=== PATIENT | male | born 1965 | race Caucasian/White ===

== ENCOUNTER → 2018-05-18 | Day surgery (SDC) | payer OTHER ==
--- NOTE | 2018-05-11 16:42 | Diagnostic Imaging Report ---
EXAMINATION: PA and lateral views of the chest. COMPARISON: None CLINICAL HISTORY: Preoperative evaluation, cholecystitis DISCUSSION: Lines/tubes: None. Lungs: The lungs are well inflated and clear. No pneumonia or pulmonary edema. Pleura: No pleural effusion or pneumothorax. Heart and mediastinum: The cardiomediastinal silhouette is normal. Bones and soft tissues: No acute bony abnormalities. IMPRESSION: No acute cardiopulmonary abnormalities. Signed by: Dr. Jr Thrasher M.D. on 05/11/2018 4:38 PM
[2018-05-11 16:52] LABS: BASOPHILS # (AUTO) 0.1 (0.0-0.1); BASOPHILS % 0.5 % (0.0-1.0); EOSINOPHILS # (AUTO) 0.2 (0.0-0.4); EOSINOPHILS % 1.8 % (0.0-6.0); HEMATOCRIT 43.1 % (38.2-49.6); HEMOGLOBIN 14.7 g/dL (14.0-18.0); LYMPHOCYTES # (AUTO) 3.8 (1.0-3.2); LYMPHOCYTES % 33.6 % (18.0-39.1); MEAN CORPUSCULAR HEMOGLOBIN 28.7 pg (28-32); MEAN CORPUSCULAR HGB CONC 34.1 g/dL (31-35); MONOCYTES # (AUTO) 0.7 (0.2-0.8); MONOCYTES % 6.1 % (4.4-11.3); NEUTROPHILS # (AUTO) 6.5 (2.1-6.9); NEUTROPHILS % 57.7 % (38.7-80.0); PLATELET COUNT 328 x10e3/uL (140-360); RED BLOOD COUNT 5.13 x10e6/uL (4.3-5.7); RED CELL DISTRIBUTION WIDTH 13.2 % (11.7-14.4)
[2018-05-11 17:11] LABS: ANION GAP 15.2 mmol/L (8-16); BLOOD UREA NITROGEN 16 mg/dL (7-26); BUN/CREATININE RATIO 18 (6-25); CALCIUM 9.6 mg/dL (8.4-10.2); CARBON DIOXIDE 24 mmol/L (22-29); CHLORIDE 101 mmol/L (98-107); CREATININE, SERUM 0.91 mg/dL (0.72-1.25); EST GLOMERULAR FILTRATION RATE > 60 ML/MIN (60-); GLUCOSE 91 mg/dL (74-118); POTASSIUM 4.2 mmol/L (3.5-5.1); SODIUM 136 mmol/L (136-145)
[~2018-05-18] MED LIST: ACETAMINOPHEN 1000 MG/100 ML IV ONE; APPLE CIDER VI300 MG PO; BUPIVACAINE 0.5%/EPI 30 ML SDV INJ ONE; DEXAMETHASONE SOD PHOS INJ 4 MG/ML VIAL ONE; FENTANYL CITRATE/PF 100MCG/2 ML INJ ONE; FIBER GUMMIES PO; GLYCOPYRROLATE INJ 1MG/ 5 ML SYR ONE; KETOROLAC TROMETHAMINE 30 MG/ML VIAL ONE; LIDOCAINE HCL 2% LOCAL INJ 5 ML SDV VIAL INJ ONE; MIDAZOLAM HCL 2 MG/2 ML VIAL ONE; NEOSTIGMINE 5 MG/5ML SYR ONE; ONDANSETRON HCL INJ 2MG/ML 2ML 2 MG/ML VIAL ONE; PROPOFOL IV EMULSION 10 MG/ML 20 ML VIAL ONE; ROCURONIUM BROMIDE 10 MG/ML 5ML VIAL ONE; SEVOFLURANE INHAL SOLN 250 ML PEN BTL ONE; VITAMIN D GUMMIES PO
--- OUTSIDE RECORDS SUMMARY | 2018-05-18 05:56 | XMS REPORT ---
Author Author Douglas Cornejo Organization [employer] Address Unknown Phone Unavailable Care Team Providers Care Hot Dog Vender Name Role Phone Douglas Cornejo Unavailable Allergies, Adverse Reactions, Alerts Substance Reaction Event Type pnc Info Not Available Drug Allergy Encounters Encounter Location Date calling in for lab results ....... [place] Dec 22, 2015 Unknown [facility] Dec 22, 2015 Sick Visit [place], [place] Dec 16, 2015 Problems Problem Type Condition ICD-9 Code Onset Dates Condition Status Problem Acid reflux K21.9 Active Problem Chest pressure R07.89 Active Problem Abdominal bloating R14.0 Active Assessment Chest pressure R07.89 Active Assessment Abdominal bloating R14.0 Active Assessment Acid reflux K21.9 Active Medications Medication Code System Code Instructions Start Date End Date Status Dosage [facility] [address]-22 40 mg Orally Once a day Dec 16, 2015 Active 1 tablet Social History Social History Element Qualifiers Date Reported Tobacco Use: . Are you a: current smoker Dec 16, 2015 Use of recreational / street drugs? . Answer: No Dec 16, 2015 Do you have pets? . Status: Yes, Type: cat(s) Dec 16, 2015 Marital Status: . Dec 16, 2015 Caffeine intake? . Status: Yes, What type: Coffee, Soft Drinks Dec 16, 2015 Do you exercise? . Answer: Yes, Type: walking Dec 16, 2015 Do you drink alcohol? . Status: No Dec 16, 2015 Travel outside [place]: . 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
--- OUTSIDE RECORDS SUMMARY | 2018-05-18 05:56 | XMS REPORT ---
Author Author [facility] Address Unknown Phone Unavailable Care Team Providers Care Rcp Name Role Phone Melissa DOUGLAS Unavailable Unavailable Problems This patient has no known problems. Allergies, Adverse Reactions, Alerts This patient has no known allergies or adverse reactions. Medications This patient has no known medications. Results Test Description Test Time Test Comments Text Results Atomic Results Result Comments CHEST 2 VIEWS 2018-05-11 16:38:00 [place] [address] Patient Name: YAQUELIN CARTER MR #: [id number] : 1965 Age/Sex: 53/M Req #: [id number] [facility] Physician: Ordered by: CHRISTINE DOUGLAS MD Report #: [id number] Location: OR Room/Bed: Procedure: [id number] DX/CHEST 2 VIEWS Exam Date: 05/11/18 Exam Time: 1620 REPORT STATUS: Signed EXAMINATION: PA and lateral views of the chest. COMPARISON: None CLINICAL HISTORY: Preoperative evaluation, cholecystitis DISCUSSION: Lines/tubes: None. Lungs: The lungs are well inflated and clear. No pneumonia or pulmonary edema. Pleura: No pleural effusion or pneumothorax. Heart and mediastinum: The cardiomediastinal silhouette is normal. Bones and soft tissues: No acute bony abnormalities. IMPRESSION: No acute cardiopulmonary abnormalities. Signed by: Dr. Colten Carcamo M.D. on 05/11/2018 4:38 PM Dictated By: COLTEN CARCAMO MD [id number] Transcribed By: ASHU on 05/11/18 1638 COPY TO: CHRISTINE DOUGLAS MD
--- OUTSIDE RECORDS SUMMARY | 2018-05-18 05:56 | XMS REPORT | Summary of Care ---
Author [facility] Address Unknown Phone Unavailable Care Team Providers Care Clinical Social Worker Name Role Phone SAMMY Cooley, ALEJANDRO Unavailable Unavailable SHAN ARGUETA M.D. Unavailable Unavailable Unavailable Unavailable Functional Status Name Dates Details Functional status health issues are not documented Status: Name Dates Details Cognitive status health issues are not documented Status: Problems Name Dates Details Limb pain (729.5, M79.609) Status: Active Acute internal derangement of knee, right (717.9, M23.91) Status: Active Dislocation of right knee, initial encounter (836.50, S83.104A) Status: Active Rupture of anterior cruciate ligament of right knee, initial encounter (844.2, S83.511A) Status: Active Rupture of posterior cruciate ligament of right knee, initial encounter (844.2, S83.521A) Status: Active Injury of posterolateral complex of right knee, initial encounter (959.7, S89.91XA) Status: Active Medications Name Dates Details MethylPREDNISolone 4 MG Oral Tablet Therapy Pack TAKE DIRECTED Quantity: 1 SHAN ARGUETA M.D. * Start : 14-Apr-2017 Active 21 Tablet Pack TraMADol HCl - 50 MG Oral Tablet TAKE 1-2 PO Q 4-6 HOURS PRN PAIN * Quantity: 50 Refills: 1 ALEJANDRO CHRISTIANSON M.D. * Start : 18-May-2017 Active Cyclobenzaprine HCl - 10 MG Oral Tablet TAKE 1 TABLET DAILY NEEDED. * Quantity: 30 Refills: 1 SAMMY M.DALEJANDRO Mayer * Start : 18-May-2017 Active Promethazine HCl - 12.5 MG Oral Tablet TAKE 1 TABLET EVERY 4 TO 6 HOURS NEEDED FOR NAUSEA. * Quantity: 30 Refills: 0 SAMMY M.DMoreno, ALEJANDRO * Start : 18-May-2017 Active TraMADol HCl - 50 MG Oral Tablet TAKE 1 TABLET EVERY 4 TO 6 HOURS NEEDED FOR PAIN. * Quantity: 60 Refills: 1 SAMMY M.D., ALEJANDRO * Start : 18-Jul-2017 Active Allergies and Adverse Reactions Name Dates Details Penicillins (Allergy) Status: Active Procedures Procedure Dates Details [U] XRAY KNEE 1 OR 2 VWS RIGHT [id number] Date: 22-Jan-2018 Immunization Name Dates Details Immunizations not documented Social History Name Dates Details Unknown if ever smoked Vital Signs Date Test Result Details No Known Vitals to report Results Date Description Value Details Results not documented Plan of Care Name Dates Details Planned Observations Planned Goals not documented Planned Encounters Appointment; ALEJANDRO CHRISTIANSON M.D. On: 23-Jan-2018 10:15 Interventions Provided Labs/Procedures/Imaging* [U] XRAY KNEE 1 OR 2 VWS RIGHT [id number]; To Be Done: 23 Jan 2018 Instructions Name Dates Details Instructions not documented Encounters Appointment; SHAN ARGUETA M.D. Encounter Diagnosis: Problem not documented On: 14-Apr-2017 10:30 Appointment; SHAN ARGUETA M.D. Encounter Diagnosis: Problem not documented On: 21-Apr-2017 10:15 Appointment; ALEJANDRO CHRISTIANSON M.D. Encounter Diagnosis: Problem not documented On: 02-May-2017 9:30 Appointment; ALEJANDRO CHRISTIANSON M.D. Encounter Diagnosis: Problem not documented On: 18-May-2017 7:00 Appointment; ALEJANDRO CHRISTIANSON M.D. Encounter Diagnosis: Problem not documented On: 25-May-2017 11:00 Appointment; ALEJANDRO CHRISTIANSON M.D. Encounter Diagnosis: Problem not documented On: 01-Jun-2017 11:00 Appointment; ALEJANDRO CHRISTIANSON M.D. Encounter Diagnosis: Problem not documented On: 06-Jun-2017 10:45 Appointment; ALEJANDRO CHRISTIANSON M.D. Encounter Diagnosis: Problem not documented On: 20-Jun-2017 13:30 Appointment; ALEJANDRO CHRISTIANSON M.D. Encounter Diagnosis: Problem not documented On: 18-Jul-2017 13:45 Appointment; ALEJANDRO CHRISTIANSON M.D. Encounter Diagnosis: Problem not documented On: 15-Aug-2017 15:15 Appointment; ALEJANDRO CHRISTIANSON M.D. Encounter Diagnosis: Problem not documented On: 24-Oct-2017 14:45 Appointment; ALEJANDRO CHRISTIANSON M.D. Encounter Diagnosis: Problem not documented On: 23-Jan-2018 10:15
--- OUTSIDE RECORDS SUMMARY | 2018-05-18 05:56 | XMS REPORT ---
Author Author Douglas Cornejo Organization [employer] Address Unknown Phone Unavailable Care Team Providers Care Dye Penetrant Testing Technician Name Role Phone Douglas Cornejo CP Unavailable Encounters Encounter Location Date calling in for lab results ....... Estephania [place], [place] Dec 22, 2015 Unknown [place]stephania [place], [place] Dec 22, 2015 Problems Problem Type Condition ICD-9 Code Onset Dates Condition Status Problem Acid reflux K21.9 Active Problem Chest pressure R07.89 Active Problem Abdominal bloating R14.0 Active Medications Medication Code System Code Instructions Start Date End Date Status Dosage Clarithromycin MEDISPAN [address]-19 500 mg Orally twice a day (bid) Dec 22, 2015 Jan 01, 2016 Active 1 tablet Protonix [facility] [address]-24 40 mg Orally twice a day (bid) Dec 22, 2015 Active 1 tablet Metronidazole [facility] [address]-44 500 mg Orally twice a day (bid) Dec 22, 2015 Jan 01, 2016 Active 1 tablet Social History Social History [...] 

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
--- OUTSIDE RECORDS SUMMARY | 2018-05-18 05:56 | XMS REPORT ---
Author Author Douglas Cornejo Organization [employer] Address Unknown Phone Unavailable Care Team Providers Care Air Reduction Equipment Operator Name Role Phone Douglas Cornejo CP Unavailable Allergies, Adverse Reactions, Alerts Substance Reaction Event Type pnc Info Not Available Drug Allergy Problems Problem Type Condition Code Onset Dates Condition Status Assessment Pure hypercholesterolemia E78.00 Active Problem Seasonal allergies J30.2 Active Problem Gastroesophageal reflux disease without esophagitis K21.9 Active Problem Primary insomnia F51.01 Active Assessment Seasonal allergies J30.2 Active Assessment Primary insomnia F51.01 Active Problem Pure hypercholesterolemia E78.00 Active Assessment Acute non-recurrent maxillary sinusitis J01.00 Active Medications Medication Code System Code Instructions Start Date End Date Status Dosage [place] [facility] [address]-18 Active not defined Azithromycin [facility] 37978062989 250 MG Orally Once a day September 01, 2017 September 06, 2017 Active 2 tablets on the first day, then 1 tablet daily for 4 days Loratadine [facility] 29657557329 10 MG Orally Once a day September 01, 2017 Nov 30, 2017 Active 1 tablet Fluticasone Propionate [facility] 76069086378 50 MCG/ACT Nasally Once a day September 01, 2017 Active 1 spray in each nostril Tramadol HCl [facility] 57508538088 50 MG Orally every 6 hrs Active 1 tablet as needed Trazodone HCl [facility] 48939298990 50 MG Orally Once a day September 01, 2017 Active 1 tablet at bedtime as needed Vital Signs Date/Time: September 01, 2017 BMI 31.16 Index Weight 199 lbs Height 67 in Temperature 97.8 F Blood Pressure Diastolic 89 mm Hg Blood Pressure Systolic 137 mm Hg Results No Known Results Summary Purpose eClinicalWorks Submission
--- OUTSIDE RECORDS SUMMARY | 2018-05-18 05:56 | XMS REPORT ---
Author Author Douglas Cornejo Organization [employer] Address Unknown Phone Unavailable Care Team Providers Care Commercial Tire Service Technician Name Role Phone Douglas Cornejo CP [...] Instructions Start Date End Date Status Dosage Omeclamox-Angel Luis MEDISPAN [address]-65 500-500-20 MG Orally as directed Dec 22, 2015 Active as directed Lipitor [facility] [address]-71 10 mg Orally Once a day Dec 22, 2015 Active 1 tablet Social History Social [...]
--- OUTSIDE RECORDS SUMMARY | 2018-05-18 05:56 | XMS REPORT ---
Author Author Douglas Cornejo [facility] eClinicalWorks Address Unknown Phone Unavailable Care Team Providers Care Trouble Locator Test Desk Name Role Phone Douglas Cornejo Unavailable Allergies, Adverse Reactions, Alerts Substance Reaction Event Type pnc Info Not Available Drug Allergy Encounters Encounter Location Date REFILLS Estephania [place] MD, [place] June 13, 2016 calling in for lab results ....... Estephania Ireland MD, PA Dec 22, 2015 Unknown Estephania Ireland MD, [place] Dec 22, 2015 Sick Visit Estephania Ireland MD, [place] Dec 16, 2015 Problems Problem Type Condition ICD-9 Code Onset Dates Condition Status Assessment Pure hypercholesterolemia E78.00 Active Problem Chest pressure R07.89 Active Assessment Gastroesophageal reflux disease without esophagitis K21.9 Active Problem Pure hypercholesterolemia E78.00 Active Problem Lipoma of left upper extremity D17.22 Active Problem Gastroesophageal reflux disease without esophagitis K21.9 Active Problem Abdominal bloating R14.0 Active Problem Acid reflux K21.9 Active Problem Ventral hernia without obstruction or gangrene K43.9 Active Problem Helicobacter pylori (H. pylori) infection A04.8 Active Assessment Helicobacter pylori (H. pylori) infection A04.8 Active Assessment Ventral hernia without obstruction or gangrene K43.9 Active Assessment Lipoma of left upper extremity D17.22 Active Medications Medication Code System Code Instructions Start Date End Date Status Dosage [facility] [address]-86 500-500-20 MG Orally as directed Dec 22, 2015 Active as directed Lipitor [facility] [address]-98 20 MG Orally Once a day Dec 22, 2015 Active 1 tablet Pantoprazole Sodium [facility] [address]-64 40 mg Orally Once a day Dec 16, 2015 Active 1 tablet Pantoprazole Sodium [facility] [address]-33 40 MG Orally Once a day June 13, 2016 Active 1 tablet Protonix [facility] [address]-52 40 mg Orally twice a day (bid) Dec 22, 2015 Active 1 tablet Social History Social History Element Qualifiers Date Reported Tobacco Use: . Are you a: current smoker June 13, 2016 Use of recreational / street drugs? . Answer: No June 13, 2016 Do you have pets? . Status: Yes, Type: cat(s) June 13, 2016 Marital Status: . June 13, 2016 Caffeine intake? . Status: Yes, What type: Coffee, Soft Drinks June 13, 2016 Do you exercise? . Answer: Yes, Type: walking June 13, 2016 Do you drink alcohol? . Status: No June 13, 2016 Travel outside [place]: . 

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
[2018-05-18 15:15] VITALS: BP 130/87
--- NOTE | 2018-05-18 16:29 | Operative Report ---
DATE OF PROCEDURE: May 18, 2018 PREOPERATIVE DIAGNOSIS: Cholecystitis and cholelithiasis. POSTOPERATIVE DIAGNOSIS: Cholecystitis and cholelithiasis. OPERATION PERFORMED: Laparoscopic cholecystectomy. ANESTHESIA: General. COMPLICATIONS: None. ESTIMATED BLOOD LOSS: Minimal. DESCRIPTION OF PROCEDURE: With the patient lying in bed in the supine position, under good general endotracheal anesthesia, the abdomen was prepped with Betadine solution and draped in the usual manner. A Veress needle was introduced into the right upper quadrant, and pneumoperitoneum was established without any difficulty. A 5-mm trocar was placed in the right subcostal region, and a 5-mm video laparoscope was placed into the intraabdominal cavity. Video laparoscopy at this point revealed the whole subumbilical area was plastered with adhesions, so we decided to go ahead and not go through the umbilicus but rather an incision was made in the right paraumbilical area, and an 11-mm trocar was introduced under direct vision without any difficulty. A 10-mm video laparoscope was placed into the intraabdominal cavity, and two more 5 mm trocars were placed in the right subcostal region. Laparoscopy at this point revealed that besides the adhesions already described the gallbladder contained some large stones and was partially intrahepatic. The rest of the abdominal exploration was within normal limits. The peritoneum overlying the neck of the gallbladder was then opened, and the cystic duct was identified. Cystic duct was followed to its junction with the common duct. Cystic duct was then circumferentially dissected away from the common duct, doubly clipped and divided. The cystic artery was similarly doubly clipped and divided. The cystic artery had an anterior and a posterior branch. The gallbladder was then slowly and carefully taken off the liver bed using the cautery scissors, and hemostasis was ascertained. The gallbladder was placed in a pouch and removed through the right paramedian incision. Video laparoscopy was then again carried out. Liver bed was found to be perfectly dry. All of the excess fluid was aspirated. The pneumoperitoneum was evacuated, and all of the trocars were removed under direct vision. The midline fascia in the right lower quadrant was then closed with a [id number] of #0 Vicryl. All layers were infiltrated on the way out with a solution of 1/4 percent Marcaine. Subcutaneous tissue was approximated with 3-0 Vicryl, and the skin was closed with subcuticular 5-0 Vicryl. Benzoin, Steri-Strips and Band-Aids were applied. The sponge, lap and needle count was correct. The patient tolerated the procedure well and returned to the recovery room in stable condition. Job#: [id number]
== END | disposition home or self-care (01) ==
LOC: OR 05:54
PROVIDERS: ATTEND Surgery
DX: K80.10 Calculus of gallbladder with chronic cholecystitis without obstruction (principal); K82.8 Other specified diseases of gallbladder; E78.5 Hyperlipidemia, unspecified; K21.9 Gastro-esophageal reflux disease without esophagitis; K57.90 Diverticulosis of intestine, part unspecified, without perforation or abscess without bleeding; Z01.810 Encounter for preprocedural cardiovascular examination; Z01.812 Encounter for preprocedural laboratory examination; Z88.5 Allergy status to narcotic agent; Z88.0 Allergy status to penicillin
CPT/HCPCS: 36415; 47562; 71046; 80048; 85025; 88304; 93005; C1766; J0131; J1100; J1885; J2001; J2250; J2405; J2704; J3490

== ENCOUNTER 2020-12-09 14:08 | Emergency (ER) | payer OTHER ==
[~2020-12-09] VITALS: Ht 170.2 cm; Wt 93.0 kg
[~2020-12-09 14:08] MED LIST changes: -ACETAMINOPHEN 1000 MG/100 ML IV ONE; -BUPIVACAINE 0.5%/EPI 30 ML SDV INJ ONE; -DEXAMETHASONE SOD PHOS INJ 4 MG/ML VIAL ONE; -FENTANYL CITRATE/PF 100MCG/2 ML INJ ONE; -GLYCOPYRROLATE INJ 1MG/ 5 ML SYR ONE; -KETOROLAC TROMETHAMINE 30 MG/ML VIAL ONE; -LIDOCAINE HCL 2% LOCAL INJ 5 ML SDV VIAL INJ ONE; -MIDAZOLAM HCL 2 MG/2 ML VIAL ONE; -NEOSTIGMINE 5 MG/5ML SYR ONE; -ONDANSETRON HCL INJ 2MG/ML 2ML 2 MG/ML VIAL ONE; -PROPOFOL IV EMULSION 10 MG/ML 20 ML VIAL ONE; -ROCURONIUM BROMIDE 10 MG/ML 5ML VIAL ONE; -SEVOFLURANE INHAL SOLN 250 ML PEN BTL ONE
[2020-12-09] MEDS ORDERED: IBUPROFEN 600 MG TAB PO STA (15:12)
[2020-12-09] MEDS ORDERED: CYCLOBENZAPRINE HCL 10 MG TAB PO ONE (15:15)
[2020-12-09] MEDS ORDERED: CYCLOBENZAPRINE10 MG PO (16:07)
== END 2020-12-09 16:20 | disposition home or self-care (01) ==
LOC: FSED 14:40
DX: M62.838 Other muscle spasm (principal); M79.651 Pain in right thigh; F17.210 Nicotine dependence, cigarettes, uncomplicated
CPT/HCPCS: 80053; 81003; 82553; 85025; 85379; 99283